=== PATIENT | male | born 1985 | race Caucasian/White ===

== ENCOUNTER 2020-02-01 10:43 | Inpatient (IN) | payer MEDICAID ==
[~2020-02-01] VITALS: Ht 188 cm; Wt 88.9 kg
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
[2020-02-01] MEDS ORDERED: loperamide 2mg capsule PO PRN (14:05)
[2020-02-01] MEDS ORDERED: acetaminophen 325mg tablet PO PRN (14:05)
[2020-02-01] MEDS ORDERED: mag hydrox/Alum hydrox/simeth 30ml oral suspension PO PRN (14:05)
[2020-02-01] MEDS ORDERED: DIPH25CA46 PO (17:12)
[2020-02-01] MEDS ORDERED: QUET400T12 PO (17:12)
[2020-02-01] MEDS ORDERED: GENT30OI2 TOP (17:12)
[2020-02-01] MEDS: diphenhydrAMINE 25mg capsule PO PRN (19:05)
[2020-02-01] MEDS: LORazepam 1 MG tablet PO PRN (19:05)
[2020-02-01 20:00] VITALS: BP 130/75
[2020-02-01] MEDS ORDERED: quetiapine 100mg tablet PO SCH (21:00)
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
[2020-02-02] MEDS: LORazepam 1 MG tablet PO PRN ×3 (07:45→20:22)
[2020-02-02] MEDS: gentamicin 0.1% topical ointment 15gm TP SCH (07:45)
[2020-02-02] MEDS: diphenhydrAMINE 25mg capsule PO PRN ×2 (07:45→18:35)
[2020-02-02 08:00] VITALS: BP 106/62
[2020-02-02 08:18] LABS: HEMOGLOBIN A1C 5.1 % (4.5-6.2)
[2020-02-02 08:43] LABS: CHOL/HDL RATIO 3.1 (0.00-4.99); CHOLESTEROL 138 MG/DL (0-200); HDL CHOLESTEROL 44 MG/DL (35-60); LDL CHOLESTEROL 76 MG/DL (50-100); TRIGLYCERIDES 142 MG/DL (20-135)
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
[2020-02-02 19:48] VITALS: BP 117/78
[2020-02-02] MEDS: thiamine 100mg tablet PO SCH (20:20)
[2020-02-02] MEDS: quetiapine 100mg tablet PO SCH (20:21)
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
[2020-02-03 08:00] VITALS: BP 124/78
[2020-02-03] MEDS: multivitamins, therapeutics tablet PO SCH (08:01)
[2020-02-03] MEDS: gentamicin 0.1% topical ointment 15gm TP SCH (08:01)
[2020-02-03] MEDS: thiamine 100mg tablet PO SCH ×2 (08:01→19:38)
[2020-02-03] MEDS: folic acid 1mg tablet PO SCH (08:01)
[2020-02-03] MEDS: diphenhydrAMINE 25mg capsule PO PRN ×2 (08:08→19:39)
[2020-02-03] MEDS: LORazepam 1 MG tablet PO PRN ×2 (08:08→19:07)
[2020-02-03] MEDS ORDERED: LORazepam 1 MG tablet PO ONE (11:40)
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
--- NOTE | 2020-02-03 15:18 | NUR ---
PHONE CALL W/NEWSPAPER PHOTOGRAPHER Called Diana (ph# [phone]) who is Cody's returned case inspector at [facility] in [place] through [employer]. She reported she has worked with Cody for a couple years. She reported he is often non-compliant with medications and would love to see him on an REID. She reported he was living in a board and care and likely cannot return. She reported Cody left the board and care due to paranoia and belief that people were following him and trying to harm him. She reported [facility] can link Cody to a board and care when he returns to [place]. She was happy to hear that Cody would like to return to [place]. Houseperson will follow up with Diana regarding discharge planning. GELA Astudillo
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
[2020-02-03] MEDS: quetiapine 100mg tablet PO SCH (19:38)
[2020-02-03 20:00] VITALS: BP 129/77
[2020-02-03] MEDS ORDERED: divalproex sod 250mg ER (24-hour) tablet PO SCH (21:00)
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
[2020-02-04] MEDS: multivitamins, therapeutics tablet PO SCH (07:29)
[2020-02-04] MEDS: gentamicin 0.1% topical ointment 15gm TP SCH (07:29)
[2020-02-04] MEDS: thiamine 100mg tablet PO SCH ×2 (07:29→20:35)
[2020-02-04] MEDS: folic acid 1mg tablet PO SCH (07:29)
[2020-02-04 08:00] VITALS: BP 111/63
[2020-02-04] MEDS: diphenhydrAMINE 25mg capsule PO PRN (10:44)
[2020-02-04] MEDS: LORazepam 1 MG tablet PO PRN ×3 (10:44→19:36)
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
[2020-02-04 20:00] VITALS: BP 119/70
[2020-02-04] MEDS: divalproex sod 250mg ER (24-hour) tablet PO SCH (20:33)
[2020-02-04] MEDS: aripiprazole 5mg tablet PO SCH (20:34)
[2020-02-04] MEDS ORDERED: quetiapine 100mg tablet PO SCH (21:00)
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
[2020-02-05 06:00] VITALS: BP 116/68
[2020-02-05] MEDS: LORazepam 1 MG tablet PO PRN ×5 (07:54→22:02)
[2020-02-05] MEDS: multivitamins, therapeutics tablet PO SCH (07:54)
[2020-02-05] MEDS: folic acid 1mg tablet PO SCH (07:54)
[2020-02-05] MEDS: diphenhydrAMINE 25mg capsule PO PRN ×2 (07:54→22:02)
[2020-02-05] MEDS: thiamine 100mg tablet PO SCH ×2 (07:54→20:43)
[2020-02-05] MEDS: divalproex sod 250mg ER (24-hour) tablet PO SCH ×2 (07:55→20:44)
[2020-02-05] MEDS: gentamicin 0.1% topical ointment 15gm TP SCH (07:58)
[2020-02-05 08:00] VITALS: BP 116/68
[2020-02-05] MEDS ORDERED: aripiprazole 5mg tablet PO SCH (08:00)
--- NOTE | 2020-02-05 15:10 | NUR ---
Nursing Progress Note: Legal hold: 5150 Expires 02/06 @ 0420 Client on voluntary/involuntary status for DTS. Report received from LISA Simon with use of SBAR. Why are they here: Client presented to ED reporting overwhelming depression. Reports a history of schizophrenia and is connected to [facility]. Client is on Invega Sustenna. Client is currently homeless which is causing significant distress. Hx of Heroin and Methamphetamine abuse. Recent SA using IV Heroin in an attempt to overdose. Reports seeing "shadowy figures in the se". Denies paranoia.. Assessment: What has happened this shift: Patient ate breakfast in group. Was up early ambulating the halls. Interacts pleasantly with. Patient let my know he wishes to be on an antibiotic. Conveyed to me he is worried about his open areas getting an infection. Cheerfully singing in the artis with his headphones. Socializing with other patients. Watching TV. Laughing at loudly at the show he is watching. S/I, H/I: Patient denies. A/VH: Internal stimuli looks present. Sleep: Will tally. 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 Group attendance: No group on nights. Were meds taken: Yes, patient is medication compliant. Any med S/E: None reported or observed. Mental Status Exam Appearance: Disheveled. Clean. Eye contact: Good. Behavior: Cooperative and friendly. Speech: Clear, normal rate, rhythm and tone. Mood: Friendly. Affect: animated. Thought process: Linear Thought Content: Getting a shower and small talk. antibiotics Cognition: A&O x3. Insight: Poor. Judgment: Poor. Interventions PRN's used: None Therapeutic interventions: 1:1 therapeutic assessment, provided active listening wit positive feedback, medication administration/education/monitoring, contract for safety, Q15 min safety checks. Restraints/seclusion/emergency medication: N/A Justification of Continued Inpatient Treatment: Patient need interruption of current crisis with medication adjustment and monitoring in a safe and therapeutic enviro Addendum: 02/05/20 at 1717 by Magen Guzman RN WRONG PATIENT
--- NOTE | 2020-02-05 17:19 | NUR ---
Affect: Blunted Thought process: Delusions of grandeur and persecution Thought Content: couldn't shake anxious thoughs Cognition: A/Ox4 Insight:poor Judgment:poor assessment: Stayed in room part of the day. Was through a lot of the day telling me how anxious he was and he couldn't get rid of the feeling. Received ativan and was still anxious so he got his second dose. Later 6hrs he needed the ativan again. Ate breakfast in the common room. Mostly stayed in is room to sleep and occasionally came out to the artis usually when he needed something. Patient cooperated with all meds today and was pleasant towards me. Interventions PRN's used: Ativan 1mg to good effect Therapeutic interventions:1:1 assessment, therapeutic conversation, active listening, maintained a safe and therapeutic environment, monitored behaviors and need for intervention, encouragement to perform personal hygiene, provided medication education, administration, and monitored for effects, Q 15 min safety checks. Restraints/seclusion/emergency medication:none Justification of Continued Inpatient Treatment: Pt. requires interruption of current crisis, medication adjustments and monitoring for effects; and a safe and therapeutic environment.
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
[2020-02-05 19:00] VITALS: BP 139/79
[2020-02-05] MEDS: aripiprazole 5mg tablet PO SCH (20:43)
[2020-02-05] MEDS: quetiapine 100mg tablet PO SCH (20:44)
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
[2020-02-06] MEDS: gentamicin 0.1% topical ointment 15gm TP SCH (07:23)
[2020-02-06 08:00] VITALS: BP 117/77
[2020-02-06] MEDS: folic acid 1mg tablet PO SCH (08:51)
[2020-02-06] MEDS: multivitamins, therapeutics tablet PO SCH (08:51)
[2020-02-06] MEDS: divalproex sod 250mg ER (24-hour) tablet PO SCH ×2 (08:51→20:06)
[2020-02-06] MEDS: thiamine 100mg tablet PO SCH ×2 (08:51→20:11)
[2020-02-06] MEDS: LORazepam 1 MG tablet PO PRN ×5 (08:51→22:00)
[2020-02-06] MEDS: diphenhydrAMINE 25mg capsule PO PRN ×3 (08:51→21:59)
--- NOTE | 2020-02-06 09:08 | NUR ---
Initial: Pt admit w/ SI on 5150 hold and hx etoh abuse. PO 75-100% avg regular diet meeting needs receiving thiamin, folic, MVI for etoh. LBM 02/04. No nutrition concerns at this time. Will continue to monitor. Rec: 1. continue regular diet 2. thiamin, folic, MVI for etoh 3. bowel care as needed 4. wt per rx Addendum: 02/06/20 at [address] Amended: Links added.
--- NOTE | 2020-02-06 10:09 | NUR ---
Additional Ativan needed. Pt continued to feel agitated after his dose of Ativan 50 minutes later.
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
[2020-02-06 19:00] VITALS: BP 114/67
[2020-02-06] MEDS: aripiprazole 5mg tablet PO SCH (20:06)
[2020-02-06] MEDS: quetiapine 100mg tablet PO SCH (20:12)
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
[2020-02-07] MEDS: divalproex sod 250mg ER (24-hour) tablet PO SCH ×2 (07:29→20:14)
[2020-02-07] MEDS: folic acid 1mg tablet PO SCH (07:30)
[2020-02-07] MEDS: thiamine 100mg tablet PO SCH ×2 (07:30→20:11)
[2020-02-07] MEDS: multivitamins, therapeutics tablet PO SCH (07:30)
[2020-02-07] MEDS: gentamicin 0.1% topical ointment 15gm TP SCH (07:34)
[2020-02-07 08:00] VITALS: BP 108/74
[2020-02-07] MEDS: LORazepam 1 MG tablet PO PRN ×3 (08:37→16:36)
[2020-02-07] MEDS: diphenhydrAMINE 25mg capsule PO PRN ×2 (08:37→15:42)
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
[2020-02-07] MEDS: magnesium hydroxide 30ml (MOM) UD suspension PO PRN (15:45)
[2020-02-07] MEDS: quetiapine 100mg tablet PO SCH (20:12)
[2020-02-07 20:44] VITALS: BP 113/72
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
[2020-02-08] MEDS: thiamine 100mg tablet PO SCH ×2 (07:29→20:21)
[2020-02-08] MEDS: folic acid 1mg tablet PO SCH (07:29)
[2020-02-08] MEDS: multivitamins, therapeutics tablet PO SCH (07:29)
[2020-02-08] MEDS: divalproex sod 250mg ER (24-hour) tablet PO SCH ×2 (07:30→20:21)
[2020-02-08 08:00] VITALS: BP 102/60
[2020-02-08] MEDS: gentamicin 0.1% topical ointment 15gm TP SCH (08:00)
[2020-02-08] MEDS ORDERED: LORazepam 1 MG tablet PO SCH (10:00)
--- NOTE | 2020-02-08 10:00 | NUR ---
Group Therapy: Process Group This Clinicians goals for this process group were as follows: (1) Ask scaling questions about Patients current anxiety, depression, and irritability symptoms as a check-in. (2) Share psychoeducation about emotional escalation as it relates to stress and negative symptoms, Fight, flight, freeze. (2) Provide psychoeducation on the STOPP acronym: Stop, Take a Breath, Observe the situation, Put things into perspective, and, Practice what works. (3) Share psychoeducation on principles of mindfulness and emotional relaxation techniques that Patients may utilize to reduce the acuity of unwanted emotional escalation. (5) Process Clients thoughts and reflections on this topic within the group milieu. Patient identified experiencing the following levels of anxiety, depression, and anger/irritability while present in the group milieu. Anxiety: 12/18 Depression: 02/17 Anger/irritability: 01/18 Patient presented as open and cooperative within the group milieu. Patient has facial and upper body scarring. He was dressed in a nondescript white tank top and black pants that were appropriate for the milieu. Patient's thought content was clear and concrete. Patient frequently articulated thoughts of being frustrated with milieu staff because they would not let him listen to his rap music, with the rationale being that the lyrics were profane and/or inappropriate. Patient believed that this was a unfair double standard because he observed other patients either listening to music or watching a tv show that had cuss words shared on it. Per this Clinician's impression, Patient appears to have poor insight regarding his most recent mental health episode, as he [id number] described internal voices that he responded to, "Without fear," that made derogatory comments about him being "burned." Patient presented as verbally engaged, and nonobtrusive during discussion within the process group; however, Patient frequently would turn most of the comments this Clinician made about the STOPP method of reducing emotional escalation into a discussion on how he was being treated unfairly because he wasn't allowed to listen to his rap music. Fausto Fraga MA, PULLER OVER Addendum: 02/09/20 at 0849 by Fausto GOULD Amended: Links added.
[2020-02-08] MEDS: LORazepam 1 MG tablet PO PRN ×3 (10:24→17:59)
[2020-02-08] MEDS: diphenhydrAMINE 25mg capsule PO PRN (10:24)
[2020-02-08] MEDS: magnesium hydroxide 30ml (MOM) UD suspension PO PRN (11:34)
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
[2020-02-08] MEDS: quetiapine 100mg tablet PO SCH (20:21)
[2020-02-08 20:46] VITALS: BP 121/71
--- NOTE | 2020-02-08 21:56 | NUR ---
Nursing Progress Note Legal hold: 5250 Client on an involuntary status for being a danger to himself Report received from Santiago GONZALEZ with use of SBAR Why are they here: The patient is a 34 year old male with schizoaffective disorder that was referred by [facility] for being a danger to himself. He reportedly began experiencing an increase in auditory hallucinations and was endorsing suicidal thoughts. Assessment What has happened this shift: The patient was up on the unit and social with peers and he was friendly and cooperative with staff as well during the evening assessment. He stated that his mood was "good for the most part" He stated that he continues to hear voices "blah blah blah in my head" but the more bothersome voices that he was hearing or gone but he believes that they will come back once he is released from the hospital. He then began to make paranoid statements about a video he made about black lives matter. He continues to have suicidal statements "still a little bit. I don't know when this is going to end" He then began to ramble about being on the [place] and then stating it was metaphorically. He stated that he is "notorious and infamous" He makes these cryptic odd statements that are vague and delusional sounding but also very difficult to follow what he is saying. S/I, H/I: Denies DTO but is stating he is having suicidal thoughts A/VH: hearing voices see above note ADL's: Independent. Reports he showered today. Were meds taken: The patient was medication compliant Any med S/E denied by the patient Mental Status Exam Appearance: upper body disfigured by robbins. He was dressed appropriate for the unit in street clothes Eye contact: WNL Behavior: Cooperative. Social with peers. Speech: spontaneous. Regular rate and rhythm Mood: "good for the most part" Affect: congruent to stated mood Thought process: Disorganized psychotic Thought Content: Delusional, suicidal thoughts Cognition: alert and oriented Insight: poor Judgment: impaired Interventions PRN's used: none Justification of Continued Inpatient Treatment:The patient reports he is feeling suicidal
[2020-02-09] MEDS: divalproex sod 250mg ER (24-hour) tablet PO SCH ×2 (07:18→20:41)
[2020-02-09] MEDS: multivitamins, therapeutics tablet PO SCH (07:19)
[2020-02-09] MEDS: folic acid 1mg tablet PO SCH (07:19)
[2020-02-09] MEDS: thiamine 100mg tablet PO SCH ×2 (07:19→20:42)
[2020-02-09 08:00] VITALS: BP 127/83
[2020-02-09] MEDS: gentamicin 0.1% topical ointment 15gm TP SCH (08:00)
[2020-02-09] MEDS: diphenhydrAMINE 25mg capsule PO PRN ×2 (09:17→20:40)
[2020-02-09] MEDS: LORazepam 1 MG tablet PO SCH ×2 (09:18→15:10)
--- NOTE | 2020-02-09 10:00 | NUR ---
Group Therapy: Process Group This Clinicians goals for this process group were as follows: (1) Ask scaling questions about Patients current anxiety, depression, and irritability symptoms as a check-in. (2) Share with Patients psychoeducation about the importance of being able to identify safe, and supportive people who can assist them with their mental and emotional needs. (3) Share psychoeducation on interpersonal boundaries and considerations to assist Patients in developing the ability to discern which groups and individuals will be helpful in assisting them during times of emotional escalation and crisis. (4) Engage Patients in discussion of the topics discussed within the group milieu. Patient identified experiencing the following levels of anxiety, depression, and anger/irritability while present in the group milieu. Anxiety: 01/18 Depression: 09/20 Anger/irritability: 08/20 Patient presented as open and cooperative within the group milieu. Patient has scarring on his face, arms, and hands. He was dressed in nondescript personal clothing that were appropriate for the milieu. Patient's thought process was clear and concrete. AEB by Patient's comments in session, his thinking process appeared to be clear, coherent, and linear. Patient was verbally engaged and nonobtrusive within the group milieu. Patient made numerous comments during the discussion about establishing safe interpersonal boundaries and strategies that one could employ to recruit safe people into one's mental health support system. Patient reported that he usually was consistent in telling all different kinds of people, regardless of who they were, about his mental health symptoms. He added that he usually prefers to, "Put it all out there." Fausto Fraga MA, BIOMETRIC FINGERPRINTING TECHNICIAN Addendum: 02/10/20 at 0840 by Fausto rFaga Amended: Links added.
[2020-02-09] MEDS: LORazepam 1 MG tablet PO PRN ×2 (10:12→16:23)
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
[2020-02-09] MEDS: quetiapine 100mg tablet PO SCH (20:41)
[2020-02-09] MEDS: traZODone 50mg tablet PO PRN (20:42)
[2020-02-10] MEDS: LORazepam 1 MG tablet PO PRN ×2 (02:10→18:03)
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
[2020-02-10 07:55] VITALS: BP 126/82
[2020-02-10] MEDS: LORazepam 1 MG tablet PO SCH ×2 (08:55→14:13)
[2020-02-10] MEDS: acetaminophen 325mg tablet PO PRN (08:56)
[2020-02-10] MEDS: folic acid 1mg tablet PO SCH (08:56)
[2020-02-10] MEDS: thiamine 100mg tablet PO SCH ×2 (08:56→21:48)
[2020-02-10] MEDS: multivitamins, therapeutics tablet PO SCH (08:56)
[2020-02-10] MEDS: divalproex sod 250mg ER (24-hour) tablet PO SCH (10:10)
--- NOTE | 2020-02-10 14:15 | NUR ---
Called Cody's telehealth case manager at [facility], Diana (ph# [phone]), to see if there are any housing options or something similar to [facility] in [place] for him. Left message requesting a call back. GELA Astudillo
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
[2020-02-10] MEDS: magnesium hydroxide 30ml (MOM) UD suspension PO PRN (18:50)
[2020-02-10 20:00] VITALS: BP 114/77
[2020-02-10] MEDS: quetiapine 100mg tablet PO SCH (21:47)
[2020-02-10] MEDS: diphenhydrAMINE 25mg capsule PO PRN (21:47)
[2020-02-10] MEDS: traZODone 50mg tablet PO SCH (21:48)
[2020-02-10] MEDS: divalproex sod 125mg tablet.DR PO SCH (23:01)
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
[2020-02-11] MEDS: LORazepam 1 MG tablet PO PRN ×2 (04:07→20:27)
[2020-02-11] MEDS: thiamine 100mg tablet PO SCH ×2 (08:04→20:27)
[2020-02-11] MEDS: divalproex sod 125mg tablet.DR PO SCH ×2 (08:04→21:20)
[2020-02-11] MEDS: folic acid 1mg tablet PO SCH (08:04)
[2020-02-11] MEDS: multivitamins, therapeutics tablet PO SCH (08:04)
[2020-02-11] MEDS: LORazepam 1 MG tablet PO SCH ×2 (08:05→15:22)
[2020-02-11 08:36] VITALS: BP 125/72
[2020-02-11] MEDS: acetaminophen 325mg tablet PO PRN (16:32)
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
[2020-02-11 19:39] VITALS: BP 108/66
[2020-02-11] MEDS: traZODone 50mg tablet PO SCH (20:27)
[2020-02-11] MEDS: quetiapine 100mg tablet PO SCH (20:27)
[2020-02-11] MEDS: traZODone 50mg tablet PO PRN (22:39)
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
[2020-02-12 08:00] VITALS: BP 106/76
[2020-02-12] MEDS: divalproex sod 125mg tablet.DR PO SCH ×2 (08:03→21:00)
[2020-02-12] MEDS: thiamine 100mg tablet PO SCH ×2 (08:04→21:24)
[2020-02-12] MEDS: multivitamins, therapeutics tablet PO SCH (08:04)
[2020-02-12] MEDS: folic acid 1mg tablet PO SCH (08:04)
[2020-02-12] MEDS: LORazepam 1 MG tablet PO SCH ×2 (09:01→15:02)
[2020-02-12] MEDS: LORazepam 1 MG tablet PO PRN ×2 (10:45→18:38)
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
[2020-02-12 19:46] VITALS: BP 109/69
[2020-02-12] MEDS ORDERED: temazepam 15mg capsule PO ONE (21:00)
[2020-02-12] MEDS: acetaminophen 325mg tablet PO PRN (21:23)
[2020-02-12] MEDS: quetiapine 100mg tablet PO SCH (21:23)
[2020-02-12] MEDS: docusate sod 100mg capsule PO SCH (21:24)
[2020-02-12] MEDS ORDERED: divalproex sod 250mg ER (24-hour) tablet PO ONE (22:00)
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
[2020-02-13 08:00] VITALS: BP 101/72
[2020-02-13] MEDS: docusate sod 100mg capsule PO SCH ×3 (08:04→21:09)
[2020-02-13] MEDS: folic acid 1mg tablet PO SCH (08:05)
[2020-02-13] MEDS: LORazepam 1 MG tablet PO SCH ×2 (08:05→15:10)
[2020-02-13] MEDS: multivitamins, therapeutics tablet PO SCH (08:05)
[2020-02-13] MEDS: divalproex sod 125mg tablet.DR PO SCH (08:05)
[2020-02-13] MEDS: thiamine 100mg tablet PO SCH ×2 (08:05→20:00)
[2020-02-13] MEDS: LORazepam 1 MG tablet PO PRN ×2 (11:27→17:48)
[2020-02-13] MEDS: diphenhydrAMINE 25mg capsule PO PRN ×2 (15:10→22:51)
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
[2020-02-13 20:00] VITALS: BP 130/78
[2020-02-13] MEDS ORDERED: divalproex sod 250mg ER (24-hour) tablet PO SCH (21:00)
[2020-02-13] MEDS: CARIPRAZINE 1.5 MG CAPSULE PO SCH (21:07)
[2020-02-13] MEDS: quetiapine 100mg tablet PO SCH (21:07)
[2020-02-14] MEDS: LORazepam 1 MG tablet PO PRN ×2 (02:54→18:37)
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
[2020-02-14] MEDS: folic acid 1mg tablet PO SCH (07:43)
[2020-02-14] MEDS: multivitamins, therapeutics tablet PO SCH (07:43)
[2020-02-14] MEDS: thiamine 100mg tablet PO SCH ×2 (07:43→20:23)
[2020-02-14] MEDS: CARIPRAZINE 1.5 MG CAPSULE PO SCH (07:45)
[2020-02-14] MEDS: acetaminophen 325mg tablet PO PRN ×2 (07:47→19:37)
[2020-02-14 08:00] VITALS: BP 115/81
[2020-02-14] MEDS: docusate sod 100mg capsule PO SCH ×2 (08:00→20:23)
[2020-02-14] MEDS: LORazepam 1 MG tablet PO SCH ×2 (08:24→15:10)
--- NOTE | 2020-02-14 09:53 | NUR ---
Reassessment: Eating well. PO 75-100% average regular diet meeting needs receiving thiamin, folic, MVI for etoh. LBM 02/12. No nutrition concerns at this time. Will continue to monitor. Rec: 1. continue regular diet 2. thiamin, folic, MVI for etoh 3. bowel care as needed 4. wt per rx Addendum: 02/14/20 at [address] Amended: Links added.
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
[2020-02-14] MEDS: quetiapine 100mg tablet PO SCH (20:20)
[2020-02-14] MEDS: divalproex sod 250mg ER (24-hour) tablet PO SCH (20:21)
[2020-02-14 20:51] VITALS: BP 123/72
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
[2020-02-14] MEDS: diphenhydrAMINE 25mg capsule PO PRN (22:17)
[2020-02-15] MEDS: LORazepam 1 MG tablet PO PRN ×4 (02:19→19:10)
[2020-02-15] MEDS: folic acid 1mg tablet PO SCH (07:45)
[2020-02-15] MEDS: thiamine 100mg tablet PO SCH ×2 (07:45→20:07)
[2020-02-15] MEDS: docusate sod 100mg capsule PO SCH ×2 (07:45→20:07)
[2020-02-15] MEDS: multivitamins, therapeutics tablet PO SCH (07:45)
[2020-02-15] MEDS: CARIPRAZINE 1.5 MG CAPSULE PO SCH (07:45)
[2020-02-15 07:51] VITALS: BP 110/83
[2020-02-15] MEDS: LORazepam 1 MG tablet PO SCH ×2 (09:00→15:21)
[2020-02-15 11:45] LABS: HIV ANTIBODY 1&2 RAPID NON-REACTIVE (Neg)
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
--- NOTE | 2020-02-15 14:53 | NUR ---
DISCHARGE PLANNING Faxed referral packet to [facility]. Cody has been there in the past and they currently have beds available. GELA Astudillo
[2020-02-15] MEDS: acetaminophen 325mg tablet PO PRN (17:20)
[2020-02-15 19:59] VITALS: BP 123/77
[2020-02-15] MEDS: quetiapine 100mg tablet PO SCH (20:07)
[2020-02-15] MEDS: divalproex sod 250mg ER (24-hour) tablet PO SCH (20:08)
[2020-02-15] MEDS: diphenhydrAMINE 25mg capsule PO PRN (23:59)
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
[2020-02-16] MEDS: LORazepam 1 MG tablet PO PRN ×3 (03:07→18:25)
[2020-02-16] MEDS: CARIPRAZINE 1.5 MG CAPSULE PO SCH (07:37)
[2020-02-16] MEDS: docusate sod 100mg capsule PO SCH ×2 (07:37→20:31)
[2020-02-16] MEDS: folic acid 1mg tablet PO SCH (07:38)
[2020-02-16] MEDS: multivitamins, therapeutics tablet PO SCH (07:38)
[2020-02-16] MEDS: thiamine 100mg tablet PO SCH ×2 (07:38→20:32)
[2020-02-16 08:00] VITALS: BP 121/80
--- NOTE | 2020-02-16 08:45 | NUR ---
Left message with [facility] requesting a call back to follow up on referral. GELA Astudillo
[2020-02-16] MEDS: LORazepam 1 MG tablet PO SCH ×2 (09:59→15:02)
--- NOTE | 2020-02-16 10:00 | NUR ---
Group Therapy: Process Group [facility] Clinicians goals for this process group were as follows: (1) Ask scaling questions about patients current anxiety, depression, and irritability symptoms as a check-in. (2) Share psychoeducation about emotional relaxation techniques with patients, including information on: mindfulness, meditation controlled breathing, progressive muscle relaxation, guided visualization. (3) Model and practice controlled breathing, progressive muscle relaxation, and guided visualization with patients within the group milieu. (4) Process patients comments and reflections on the before-mentioned activities after they have participated in them. Patient arrived to the group milieu approximately thirty minutes after the process group started. This Clinician greeted him and attempted to ask him scaling questions about his subjective impression of his levels of depression, anxiety, and anger/irritability. Patient looked at this Clinician, waved at him, and stated, "I don't want to do that today." Patient was dressed in nondescript personal clothing--a dark hat, black shirt, and black running pants. Patient did not participate in any discussion on emotional relaxation techniques, nor did he engage in the practice of controlled breathing, progressive muscle relaxation, or guided visualization. Patient sat in the back of the group room with his head resting on his folded arms. He quietly left the milieu on his own accord after about ten minutes and did not return. Fausto Fraga MA, GELA Addendum: 02/17/20 at 0834 by Fausto Fraga SS Amended: Links added.
[2020-02-16] MEDS: acetaminophen 325mg tablet PO PRN ×2 (10:49→20:31)
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
[2020-02-16] MEDS ORDERED: benzocaine (Anbesol) 12ml bottle MM PRN (18:45)
[2020-02-16 19:38] VITALS: BP 110/72
[2020-02-16] MEDS: clindamycin 150mg capsule PO SCH (20:31)
[2020-02-16] MEDS: quetiapine 100mg tablet PO SCH (21:28)
[2020-02-16] MEDS: divalproex sod 250mg ER (24-hour) tablet PO SCH (21:28)
[2020-02-17] MEDS: LORazepam 1 MG tablet PO PRN ×3 (00:09→19:52)
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
[2020-02-17] MEDS: clindamycin 150mg capsule PO SCH ×4 (03:07→21:02)
[2020-02-17] MEDS: acetaminophen 325mg tablet PO PRN ×2 (03:07→12:16)
[2020-02-17] MEDS: multivitamins, therapeutics tablet PO SCH (07:16)
[2020-02-17] MEDS: CARIPRAZINE 1.5 MG CAPSULE PO SCH (07:16)
[2020-02-17] MEDS: thiamine 100mg tablet PO SCH ×2 (07:16→21:02)
[2020-02-17] MEDS: docusate sod 100mg capsule PO SCH ×2 (07:17→21:02)
[2020-02-17] MEDS: folic acid 1mg tablet PO SCH (07:17)
[2020-02-17 07:33] VITALS: BP 151/85
[2020-02-17] MEDS: LORazepam 1 MG tablet PO SCH ×2 (09:03→14:48)
--- NOTE | 2020-02-17 10:00 | NUR ---
Group Therapy: Process Group This Clinicians goal for this process group were as follows: (1) Share psychoeducation about core beliefs and how these beliefs shapes how one views reality. (2) Compare and contrast how people with different core beliefs might interpret an identical situation differently. (3) Discuss how changing negative core beliefs to more balanced, helpful, and rational alternatives can lead to improved behaviors and mood. (4) Process Clients thoughts and reflections on this topic within the group milieu. Patient identified experiencing the following levels of anxiety, depression, and anger/irritability while present in the group milieu. Anxiety: 02/17 Depression: 03/20 Anger/irritability: 05/20 Patient presented as cooperative within the group milieu. Patient was dressed in personal, nondescript clothing--a black t-shirt, with matching black pants within the milieu. Patient's thought content was clear and concrete. Patient verbalized strong feelings of anger, which he noted as being a 10/10. Patient reported that he was to a point where he wanted to flip the tables and the furniture in the group room, but he said that he was not going to do that because he was aware that the consequences of such action would be negative, and that he would then need to potato picker and reset all the furniture. Patient's thought process appeared, clear, coherent and linear. He verbalized feeling upset, alluding to conduct with another Patient that he was getting blamed for unfairly. Patient left the process group during the initial psychoeducation about core beliefs. This Clinician asked Patient if he intended on returning. Patient stated that, "My meds have kicked in and I need to sleep." Patient left the milieu quietly and did not return. Fausto Fraga MA, PIE BAKER Addendum: 02/17/20 at 1139 by Fausto Fraga Amended: Links added.
[2020-02-17] MEDS: magnesium hydroxide 30ml (MOM) UD suspension PO PRN (11:28)
--- NOTE | 2020-02-17 17:12 | NUR ---
Nursing Progress Note: Legal hold: 5250 Client on involuntary status for GD Report received from Chelly llanos RN with use of SBAR: Why are they here: Pt brought to the ER by his friend with concerns that the patient is hearing voices. In the ER Pt stated he is only hearing God's voice, but "God won't let anything bad happen to [him]." It was also reported that pt. had been urinating in his sleep and lying on the couch in his urine. 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 He has multiple ER visits and was hospitalized here on [facility] in June of 2018. Assessment What has happened this shift: Pt. asleep at start of shift. Pt. awoken for medications and took all medications. Pt. refused breakfast, states that he prefers to sleep more. However, pt. then requested a snack and RN informed pt. that he needs to eat breakfast in the future instead of snack. 1:1 done at bedside. RN asked pt. if he would shower today, pt. states, Maybe. Pt. denies SI/HI,but + VH and + AH. Pt. at first states that he is unable to share with me what the voices are telling him. Pt. then informed RN that he hears voices telling him to take a shower. Pt. appears to be responding to internal stimuli during interview, mumbling to himself. Pt. reports he sees giant black spider at times. As RN was leaving, pt. requested a shower. Pt. showered, however, after the shower, pt. continued to wear is soiled clothing, stating, "This shirt is a special shirt for me". Pt. went outside to patio with peers and staff. Pt. appears more visible in the milieu today. Pt. requested anxiolytic and given Ativan 1mg and Benadryl 50mg. S/I, H/I: Denies A/VH: + visual and command auditory hallucinations. Pt. reports the voices telling him to shower. Sleep: Pt. went back to sleep instead of eat his breakfast. Pt. napped less today. ADL's: Needs prompting. Pt. showered, but refused to allow staff to wash his clothes. Group attendance: No Were meds taken: Yes Any med S/E: None Mental Status Exam Appearance: Disheveled, dressed in dirty street clothes, refuses to wash clothes. Eye contact: fair Behavior: Cooperative, guarded, isolates less today. Speech: WNL at times, but becomes mumbled r/t internal preoccupation. Mood: Anxious, paranoid. Affect: Constricted Thought process: Paranoid. Thought blocking. Thought Content: Difficiult to assess due to thought blocking. Cognition: A&O X4 Insight: Poor Judgment: Poor Interventions PRN's used: Ativan 1mg and benadryl 50mg po x1 Therapeutic interventions: Introduced self and established rapport, ensured contract for safety, maintained a safe and supportive environment, provided clear and simple instructions, attempted to orient to reality, monitored behaviors and provided intervention as needed, and maintained Q 15min safety checks. Restraints/seclusion/emergency medication: N/A Justification of Continued Inpatient Treatment: Pt. requires interruption of current crisis, medication Addendum: 02/17/20 at 1713 by Howard Meza RN THIS NOTE WAS DONE ON THE WRONG PATIENT.
--- NOTE | 2020-02-17 17:13 | NUR ---
THE NOTE BELOW IS ON A DIFFERENT PATIENT.
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
[2020-02-17 20:00] VITALS: BP 130/85
[2020-02-17] MEDS: divalproex sod 250mg ER (24-hour) tablet PO SCH (21:02)
[2020-02-17] MEDS: quetiapine 100mg tablet PO SCH (21:02)
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
[2020-02-18] MEDS: clindamycin 150mg capsule PO SCH ×4 (03:22→20:23)
[2020-02-18] MEDS: LORazepam 1 MG tablet PO PRN ×2 (05:26→18:53)
[2020-02-18] MEDS: CARIPRAZINE 1.5 MG CAPSULE PO SCH (07:52)
[2020-02-18] MEDS: folic acid 1mg tablet PO SCH (07:52)
[2020-02-18] MEDS: thiamine 100mg tablet PO SCH ×2 (07:53→20:23)
[2020-02-18] MEDS: multivitamins, therapeutics tablet PO SCH (07:53)
[2020-02-18] MEDS: docusate sod 100mg capsule PO SCH ×2 (07:53→20:23)
[2020-02-18 08:33] VITALS: BP 128/85
[2020-02-18] MEDS: LORazepam 1 MG tablet PO SCH ×2 (09:04→15:05)
[2020-02-18] MEDS: acetaminophen 325mg tablet PO PRN ×2 (09:07→18:59)
--- NOTE | 2020-02-18 13:59 | NUR ---
DISCHARGE Friday02/21/20 Cody will get picked up by his grandfather, Shubham, at 9 AM on Friday. Shubham will transport Cody to [place]. Cody's case hardener will refer Cody to [facility] upon discharge. Cody has already been accepted, however, another referral has to be completed once he is discharged because his grandfather is transporting him. Cody will call his case hardener, Diana (ph# [phone]), after he discharges to find out what crisis program he will be going to. This will not be known until Friday. GELA Astudillo
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
[2020-02-18 19:44] VITALS: BP 132/78
[2020-02-18] MEDS: quetiapine 100mg tablet PO SCH (20:22)
[2020-02-18] MEDS: divalproex sod 250mg ER (24-hour) tablet PO SCH (20:22)
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
[2020-02-19] MEDS: clindamycin 150mg capsule PO SCH ×4 (02:56→20:42)
[2020-02-19] MEDS: LORazepam 1 MG tablet PO PRN ×2 (02:56→12:29)
[2020-02-19] MEDS: docusate sod 100mg capsule PO SCH ×2 (07:53→20:42)
[2020-02-19] MEDS: multivitamins, therapeutics tablet PO SCH (07:54)
[2020-02-19] MEDS: CARIPRAZINE 1.5 MG CAPSULE PO SCH (07:54)
[2020-02-19] MEDS: thiamine 100mg tablet PO SCH ×2 (07:54→20:42)
[2020-02-19] MEDS: folic acid 1mg tablet PO SCH (07:54)
[2020-02-19] MEDS: LORazepam 1 MG tablet PO SCH ×2 (08:24→14:45)
[2020-02-19 08:58] VITALS: BP 119/80
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
[2020-02-19] MEDS: acetaminophen 325mg tablet PO PRN (18:18)
[2020-02-19 19:00] VITALS: BP 110/63
[2020-02-19] MEDS ORDERED: traZODone 50mg tablet PO PRN (19:50)
[2020-02-19] MEDS: divalproex sod 250mg ER (24-hour) tablet PO SCH (20:42)
[2020-02-19] MEDS: quetiapine 100mg tablet PO SCH (20:43)
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
[2020-02-20] MEDS: clindamycin 150mg capsule PO SCH ×4 (02:02→20:27)
[2020-02-20] MEDS: multivitamins, therapeutics tablet PO SCH (07:57)
[2020-02-20] MEDS: CARIPRAZINE 1.5 MG CAPSULE PO SCH (07:57)
[2020-02-20] MEDS: thiamine 100mg tablet PO SCH ×2 (07:57→20:29)
[2020-02-20] MEDS: folic acid 1mg tablet PO SCH (07:57)
[2020-02-20] MEDS: docusate sod 100mg capsule PO SCH ×2 (07:57→20:27)
[2020-02-20 08:00] VITALS: BP 106/70
[2020-02-20] MEDS: LORazepam 1 MG tablet PO SCH ×2 (09:06→14:50)
[2020-02-20] MEDS: LORazepam 1 MG tablet PO PRN ×2 (11:04→21:28)
[2020-02-20] MEDS: acetaminophen 325mg tablet PO PRN ×2 (11:08→20:28)
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
[2020-02-20] MEDS ORDERED: QUET100T33 PO (19:03)
[2020-02-20] MEDS ORDERED: CLIN300C54 PO (19:03)
[2020-02-20] MEDS ORDERED: CARI3CAP PO (19:03)
[2020-02-20] MEDS ORDERED: DOCU100C40 PO (19:03)
[2020-02-20] MEDS ORDERED: ATI1T PO (19:03)
[2020-02-20] MEDS ORDERED: DIVA500T9 PO (19:03)
[2020-02-20] MEDS ORDERED: thiamine tablet PO (19:03)
[2020-02-20] MEDS ORDERED: DIPH-423 PO (19:03)
[2020-02-20] MEDS ORDERED: ANBESOL MM (19:03)
[2020-02-20] MEDS ORDERED: TRAZ-251 PO (19:03)
[2020-02-20] MEDS ORDERED: folic acid tablet PO (19:03)
[2020-02-20] MEDS ORDERED: MULT-25 PO (19:03)
[2020-02-20 20:00] VITALS: BP 131/84
[2020-02-20] MEDS: divalproex sod 250mg ER (24-hour) tablet PO SCH (20:29)
[2020-02-20] MEDS: quetiapine 100mg tablet PO SCH (20:30)
[2020-02-21] MEDS: clindamycin 150mg capsule PO SCH ×2 (02:33→07:15)
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
[2020-02-21] MEDS: multivitamins, therapeutics tablet PO SCH (07:15)
[2020-02-21] MEDS: LORazepam 1 MG tablet PO PRN (07:15)
[2020-02-21] MEDS: folic acid 1mg tablet PO SCH (07:15)
[2020-02-21] MEDS: thiamine 100mg tablet PO SCH (07:15)
[2020-02-21] MEDS: docusate sod 100mg capsule PO SCH (07:15)
[2020-02-21] MEDS: CARIPRAZINE 1.5 MG CAPSULE PO SCH (07:17)
[2020-02-21] MEDS ORDERED: DIVA500T9 PO ×2 (07:39→07:57)
[2020-02-21] MEDS ORDERED: QUET300T19 PO (07:39)
[2020-02-21] MEDS ORDERED: DOCU100C40 PO (07:39)
[2020-02-21] MEDS ORDERED: ATI1T PO (07:43)
[2020-02-21] MEDS ORDERED: LORA-269 PO (07:46)
[2020-02-21] MEDS ORDERED: CARI4.5C PO (07:57)
[2020-02-21] MEDS ORDERED: DIPH-423 PO (07:57)
[2020-02-21] MEDS ORDERED: CLE150C PO (07:58)
[2020-02-21] MEDS: LORazepam 1 MG tablet PO SCH (08:30)
--- NOTE | 2020-02-21 08:50 | NUR ---
nutrition consultant Note: Patient given discharge instructions. Patient verbalized understanding. All questions were answered. Patient has all his belongings and valuables. Patient also given prescriptions for his medications and the medications that were brought with patient. Patient denies suicidal ideation. Patient had pictures of his healed wounds taken. Patient here for 20 days and did not need an MRSA swab. Patient is a non-smoker and did not need Nicotine replacement. Patient going to a rehab facility in [place]. Patient ambulatory, steady gait with 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 No distress observed.
== END 2020-02-21 08:50 | disposition home or self-care (01) | DRG 750 ==
LOC: ADULT MH 10:43 → UNDODISIN 02-07 14:31 → ADULT MH 02-17 12:18
PROVIDERS: ADMIT Psychiatry & Neurology Psychiatry; ATTEND Psychiatry & Neurology Psychiatry
DX: F25.9 Schizoaffective disorder, unspecified (principal); F10.20 Alcohol dependence, uncomplicated; F12.90 Cannabis use, unspecified, uncomplicated; J45.909 Unspecified asthma, uncomplicated; R45.851 Suicidal ideations; F17.200 Nicotine dependence, unspecified, uncomplicated
CPT/HCPCS: 36415; 71045; 80061; 80164; 83036; 86696; 86703; 87081; 99285; Q0163